=== PATIENT | male | born 1955 | race African-American/Black ===

== ENCOUNTER 2017-04-14 06:36 | Emergency (ER) | payer MEDICARE | END 2017-04-14 08:47 | disposition home or self-care (01) | LOC: ERS 06:36 | DX: J11.1 Influenza due to unidentified influenza virus with other respiratory manifestations (principal); K21.9 Gastro-esophageal reflux disease without esophagitis; E78.5 Hyperlipidemia, unspecified; M10.9 Gout, unspecified; M19.90 Unspecified osteoarthritis, unspecified site; J44.9 Chronic obstructive pulmonary disease, unspecified; F17.210 Nicotine dependence, cigarettes, uncomplicated; Z86.73 Personal history of transient ischemic attack (TIA), and cerebral infarction without residual deficits; Z79.899 Other long term (current) drug therapy | CPT/HCPCS: 94640; 99406 ==

== ENCOUNTER 2019-12-31 11:15 | Inpatient (IN) | payer OTHER ==
[2019-12-31] MEDS ORDERED: cefTRIAXone\\ROCEPHIN 1 GM VIAL ONE (12:14)
[2019-12-31] MEDS ORDERED: Pantoprazole 40 MG VIAL ONE (12:14)
[2019-12-31 12:41] LABS: #Basophils 0.1 thou/uL (0.0-0.2); #Eosinphils 0.1 thou/uL (0.0-0.7); #Neutrophils 8.5 thou/uL (1.40-6.50); %Basophils 1.2 % (0.0-1.0); %Eosinophils 0.6 % (0.0-10.0); %Lymphocytes 16.9 % (21.0-51.0); %Monocytes 8.6 % (0.0-10.0); %Neutrophils 72.7 % (42.0-75.0); Hemoglobin 10.2 g/dL (14.0-18.0); Mean Corpuscular Hemoglobin 30.6 pg (27.0-31.0); Mean Corpuscular Volume 92.5 fL (78.0-98.0); Mean Platelet Volume 10.6 fL (7.4-10.4); Platelet Count 166 thou/uL (130-400); RBC Distribution Width 11.5 % (11.5-14.5); Red Blood Cell (RBC) Count 3.33 mill/uL (4.70-6.10); White Blood Cell (WBC) Count 11.7 thou/uL (4.8-10.8)
[2019-12-31 12:49] LABS: PTT 24.9 sec (22.9-36.1); Prothrombin Time 12.7 sec (12.0-14.7)
[2019-12-31 13:03] LABS: ALT (SGPT) 16 U/L (8-55); AST (SGOT) 16 U/L (5-34); Alkaline Phosphatase 62 U/L (40-110); Anion Gap 15 mmol/L (10-20); BUN (Urea Nitrogen) 42 mg/dL (8.4-25.7); Bilirubin, Total 0.3 mg/dL (0.2-1.2); Calc. Creatinine Clearance 0 mL/min (70-130); Calcium 8.7 mg/dL (7.8-10.44); Carbon Dioxide 22 mmol/L (23-31); Chloride 104 mmol/L (98-107); Estimated GFR-MDRD Greater than 90; Globulin 2.8 g/dL (2.4-3.5); Glucose 186 mg/dL (80-115); Iron 325 ug/dL (65-175); Iron Binding Capacity, Total 328 mcg/dL (261-462); Potassium 4.5 mmol/L (3.5-5.1); Protein, Total 6.8 g/dL (5.8-8.1); Sodium 136 mmol/L (136-145)
[2019-12-31] MEDS ORDERED: Acetaminophen 325 MG TAB PO PRN (14:15)
[2019-12-31] MEDS ORDERED: Zolpidem Tartrate 5 MG TAB PO PRN (14:15)
[2019-12-31] MEDS ORDERED: Ondansetron ODT 4 MG TAB PO PRN (14:15)
[2019-12-31 14:46] LABS: Prothrombin Time 12.9 sec (12.0-14.7)
--- NOTE | 2019-12-31 14:47 | HP ---
PRIMARY CARE PROVIDER: [place]. CHIEF COMPLAINT: Black stools. PRESENT ILLNESS: The patient noticed a dark stool yesterday. He did think that the odor was strong, but noted no redness and he had another black BM x2 today, then he had an episode of vomiting today of dark coffee-ground looking material. He does admit to some bloating. He said he has had some mild occasional abdominal pain, generalized, not burning. Today, he felt weak and dizzy when he stood up. He states he has been told he has a heart murmur, elevated cholesterol, hypothyroidism, gastroesophageal reflux disease. He takes an aspirin 325 daily. He takes Zocor 20 mg a day, levothyroxine 25 mcg a day, and he has been taking Zantac, he is not sure of the dose. He states he also takes the drug from the [place] that starts with an R for pain that does not have any drugs in it. ALLERGIES: NO MEDICAL ALLERGIES. SURGERIES: He has had an L-spine surgery. He has had a mid abdominal hernia surgery with mesh below the umbilicus. FAMILY HISTORY: Mother had diabetes, high blood pressure and heart disease. He thinks she also had an ulcer as the only person with significant medical disease in her family history. He is . Full code. , next of kin for decision making. He smokes less than a half a pack a day. He has been known to drink 8 to 10 beers a day. Takes no illicit drugs. REVIEW OF SYSTEMS: CONSTITUTIONAL: He is dizzy on arising today. No fainting. No headache. EYES: No double vision, blurred vision, flashing lights. EAR, NOSE, AND THROAT: No ear pain or drainage. No nasal bleeding. No trouble swallowing. CARDIAC: No chest pain, orthopnea, or paroxysmal nocturnal dyspnea. RESPIRATION: No cough, wheezing or asthma, but he does state he is a little short of breath walking today. GASTROINTESTINAL: See Present Illness. No prior history of gastrointestinal bleeding, etc. GENITOURINARY: No hematuria, dysuria. MUSCULOSKELETAL: No pain or swelling in his legs. NEUROLOGICAL: No strokes, seizures, or focal weakness. PSYCHIATRIC: No anxiety or depression. SKIN: No bruising, bleeding or rash. HEME/LYMPH: No tender or swollen lymph nodes in axilla, inguinal, cervical area. PHYSICAL EXAMINATION: GENERAL: He is alert, pleasant, cooperative man. VITAL SIGNS: His initial blood pressure was 90/60 with a pulse of 105. He is currently 120/80 with pulse of 80, respirations 18. No pain. Temperature 98.5. HEAD, EYES, EARS, NOSE, AND THROAT: Revealed pupils are equal, round, and reactive to light with mild cataracts. Extraocular movements are intact. Sclerae are white. Tympanic membranes are clear. Nose is clear. Oral mucous membranes are wet. NECK: No jugular venous distention, adenopathy, thyromegaly or bruits. CHEST: Clear to auscultation and percussion. HEART: Regular rate and rhythm. First and second heart sounds. Soft 2/6 systolic murmur. ABDOMEN: Soft. Bowel sounds are normal. There is no hepatosplenomegaly. No mass. No rebound. EXTREMITIES: Reveal no cyanosis, clubbing, or edema. PULSES: Carotid, radial, femoral, and dorsalis pedis pulses intact. SKIN: Warm and dry without bruises or rash. HEME/LYMPH: Reveal no tender or swollen lymph nodes in axilla, inguinal, cervical area. LABORATORY: CBC; white count 11.7, hemoglobin 10.2, platelet count 166,000. INR 1.0. Chemistries show high iron at 325, a normal ferritin at 62. Liver function tests are normal. Electrolytes reveals sodium 135, potassium 4.5, chloride 104 , CO2 22, BUN 42, creatinine 0.87. I see no evidence of a chest x-ray or EKG done here. We will order same and review. ADMITTING DIAGNOSES: 1. History consistent with upper gastrointestinal bleeding with hematochezia and melena. 2. Anemia, acute blood loss. 3. Gastroesophageal reflux disease by history. 4. Dyslipidemia. 5. Hypothyroidism. 6. Alcohol abuse. 7. Tobacco abuse. PLAN: 1. Admit to [facility]. 2. GI consult for probable upper endoscopy. 3. Protonix IV q.12 hours. 4. IV fluids., transfuse for Hg < 7. 5. Clear liquids. 6. Banana bag daily. 7. Compression devices to prevent deep vein thrombosis. Job ID: [id number] MTDD
[2019-12-31 17:33] LABS: #Basophils 0.1 thou/uL (0.0-0.2); #Lymphocytes 2.8 thou/uL (1.20-3.40); #Monocytes 1.2 thou/uL (0.11-0.59); #Neutrophils 7.8 thou/uL (1.40-6.50); %Basophils 1.2 % (0.0-1.0); %Eosinophils 0.4 % (0.0-10.0); %Lymphocytes 23.4 % (21.0-51.0); %Monocytes 10.2 % (0.0-10.0); %Neutrophils 64.8 % (42.0-75.0); Hemoglobin 9.6 g/dL (14.0-18.0); Mean Corpuscular HGB CONC 32.8 g/dL (32.0-36.0); Mean Corpuscular Volume 91.4 fL (78.0-98.0); Mean Platelet Volume 10.2 fL (7.4-10.4); Platelet Count 156 thou/uL (130-400); RBC Distribution Width 11.6 % (11.5-14.5); White Blood Cell (WBC) Count 12.1 thou/uL (4.8-10.8)
[2019-12-31] MEDS: Sodium Chloride 0.9% 1,000 ML IV SCH ×2 (17:58→20:12)
[2019-12-31] MEDS: Pantoprazole 40 MG VIAL IVP SCH (20:11)
[2019-12-31 23:06] LABS: #Basophils 0.1 thou/uL (0.0-0.2); #Eosinphils 0.1 thou/uL (0.0-0.7); #Lymphocytes 3.4 thou/uL (1.20-3.40); #Monocytes 1.2 thou/uL (0.11-0.59); #Neutrophils 6.3 thou/uL (1.40-6.50); %Basophils 1.2 % (0.0-1.0); %Eosinophils 1.3 % (0.0-10.0); %Lymphocytes 30.3 % (21.0-51.0); %Monocytes 10.5 % (0.0-10.0); %Neutrophils 56.7 % (42.0-75.0); Hemoglobin 8.7 g/dL (14.0-18.0); Mean Corpuscular HGB CONC 33.9 g/dL (32.0-36.0); Mean Corpuscular Hemoglobin 31.5 pg (27.0-31.0); Mean Corpuscular Volume 92.8 fL (78.0-98.0); Mean Platelet Volume 10.1 fL (7.4-10.4); Platelet Count 138 thou/uL (130-400); RBC Distribution Width 11.6 % (11.5-14.5); Red Blood Cell (RBC) Count 2.77 mill/uL (4.70-6.10); White Blood Cell (WBC) Count 11.1 thou/uL (4.8-10.8)
--- NOTE | 2020-01-01 02:25 | CON ---
DATE OF CONSULTATION: 12/31/2019 REASON FOR CONSULTATION: History of black tarry stool and anemia. HISTORY OF PRESENT ILLNESS: Mr. Valente Qiu is a 64-year-old male seen in the ER this morning with a history of black tarry stools for the last 2 days. He woke up this morning and felt nauseous and he had sudden nausea and vomiting and he vomited some coffee-ground material. The patient had vomited only one time. He felt dizzy subsequently afterwards and felt like passing out. He felt weak overall. He came to the ER and was found to have anemia and tarry stool on rectal exam. Initially, he was transiently hypotensive, with the fluid bolus his blood pressure went back to normal. When I saw him in the IMCU, he is actually awake, alert, and communicative. His pulse rate is 96 and blood pressure 110/ 70. The patient denies abdominal pain or any more nausea at the present time. He has had no more stool. The patient does see Dr. Maynor Carmona at the [facility]. The patient has had previous EGD and colonoscopy. He told it was done somewhere in [place] and then, he told me somewhere done in [place]. Finally, he tells me he had a colonoscopy with [facility] three years ago and he has EGD at the same time. The patient does take aspirin on a regular basis. He also takes naproxen at least once a day for some headache and for some back pain. The patient had no previous episodes of hematochezia, black tarry stool, nausea, or vomiting. He does not know what was found on the last examination in 2016. He had no history of esophageal varices. He has no history of liver cirrhosis. Apparently, his GI doctor told him that he is drinking heavily, he might also have liver cirrhosis in the future. He does drink at least 8 to 10 cans of beer every day. The patient denies any dyspepsia. No history of dysphagia or odynophagia. The patient was taking Zantac before, but he is taking generic Zantac at the present time. He takes ranitidine. He has no relevant symptoms. ALLERGIES: NONE. SOCIAL HISTORY: The patient smokes one half pack of cigarettes per day. Alcohol 8 to 10 cans of beer every day. No drug use. MEDICAL ILLNESSES: 1. Chronic low back pain, status post surgery many years ago. 2. Hypothyroidism. 3. Hyperlipidemia. 4. Heart murmur. 5. Chronic acid reflux. MEDICATIONS: Includes; 1. Aspirin once a day. 2. Naproxen. 3. Zocor for hyperlipidemia. 4. Also takes thyroid replacement. SURGERIES: 1. Umbilical hernia repair. 2. Back surgery. 3. EGD and colonoscopy. FAMILY HISTORY: Mother; diabetes mellitus, hypertension, and heart disease. There is no family history of any visual malignancy. REVIEW OF SYSTEMS: Reviewed; [employer]: No history of any seizure disorder. No history of chronic headache. No syncope. RESPIRATORY SYSTEM: No chronic coughing. No hemoptysis. No dyspnea. CARDIOVASCULAR SYSTEM: History of heart murmur. No chest pain. No palpitation. No dyspnea, orthopnea, or PND. GI: History of tarry stool, nausea, vomiting, and vomiting coffee-ground material. : No dysuria or hematuria. MUSCULOSKELETAL: History of chronic back pain. Takes naproxen. NEUROPSYCHIATRY: No history of depression or anxiety. HEMATOLOGIC: Not relevant. HEENT: No diplopia. No impaired vision. No hearing loss. No nose bleeding. No sore throat or dysphagia. PHYSICAL EXAMINATION: GENERAL: He is a very pleasant male, appears very comfortable. He is awake, alert, and communicative. VITAL SIGNS: Pulse is 96 and blood pressure 110/70. HEENT: Conjunctivae are clear. NECK: Supple. No adenitis or thyromegaly noted. CARDIOVASCULAR SYSTEM: Normal heart sounds. He has a faint systolic murmur. LUNGS: Clear to auscultation. ABDOMEN: Soft to palpate. Abdomen is nondistended. Abdomen is nontender. No organomegaly. No masses. GENITOURINARY: No hernia noted. EXTREMITIES: No pain or any deformities or impaired walking. Reveal no edema. LABORATORY DATA: WBC 11,700, hemoglobin 10.2, hematocrit 33, and platelet count 166,000. INR is 1. Chemistry panel shows iron 325 and ferritin 52. LFTs are normal. Electrolytes are normal. BUN is 42, mostly from GI bleeding. Creatinine 0.67. Liver function tests normal. CLINICAL IMPRESSION: 1. A 64-year-old male with history of black tarry stool and vomiting coffee-ground material. No abdominal pain. The patient's blood pressures potentially low in the ER but now back to normal. Blood count is slightly low. Based on the history of taking aspirin and also naproxen, he most likely has ulcer disease. 2. Anemia due to blood loss. 3. Hypothyroidism. 4. Hyperlipidemia. 5. Chronic acid reflux. 6. Umbilical hernia repair. 7. History of back surgery and he still has some pain off and on. RECOMMENDATION: 1. PPI. 2. Clear liquid diet. 3. Serial H and H. 4. EGD tomorrow after his COVID-19 test comes back. I tried to have the rapid COVID testing done, but the ER told me there were very limited tests available. 5. We will recommend transfuse if blood count drops below 7 g. Job ID: [id number] [facility]
[2020-01-01] MEDS: Sodium Chloride 0.9% 1,000 ML IV SCH ×2 (04:54→10:43)
[2020-01-01 05:40] LABS: #Basophils 0.1 thou/uL (0.0-0.2); #Eosinphils 0.2 thou/uL (0.0-0.7); #Lymphocytes 2.8 thou/uL (1.20-3.40); #Neutrophils 5.7 thou/uL (1.40-6.50); %Basophils 1.4 % (0.0-1.0); %Eosinophils 1.9 % (0.0-10.0); %Lymphocytes 28.4 % (21.0-51.0); %Monocytes 10.5 % (0.0-10.0); %Neutrophils 57.9 % (42.0-75.0); Hemoglobin 8.1 g/dL (14.0-18.0); Mean Corpuscular HGB CONC 32.6 g/dL (32.0-36.0); Mean Corpuscular Hemoglobin 30.2 pg (27.0-31.0); Mean Corpuscular Volume 92.8 fL (78.0-98.0); Mean Platelet Volume 10.4 fL (7.4-10.4); Platelet Count 131 thou/uL (130-400); RBC Distribution Width 11.6 % (11.5-14.5); Red Blood Cell (RBC) Count 2.69 mill/uL (4.70-6.10); White Blood Cell (WBC) Count 9.9 thou/uL (4.8-10.8)
[2020-01-01 05:56] LABS: Anion Gap 11 mmol/L (10-20); BUN (Urea Nitrogen) 18 mg/dL (8.4-25.7); Calc. Creatinine Clearance 112 mL/min (70-130); Calcium 7.9 mg/dL (7.8-10.44); Carbon Dioxide 23 mmol/L (23-31); Chloride 108 mmol/L (98-107); Estimated GFR-MDRD Greater than 90; Glucose 107 mg/dL (80-115); Potassium 3.9 mmol/L (3.5-5.1); Sodium 138 mmol/L (136-145)
[2020-01-01] MEDS ORDERED: Fentanyl 100 MCG/2 ML VIAL ONE (06:50)
[2020-01-01] MEDS: Pantoprazole 40 MG VIAL IVP SCH ×2 (07:32→21:07)
[2020-01-01 08:26] LABS: SARS-CoV-2 NAA Rapid Test Not Detected (NotDetected)
[2020-01-01] MEDS ORDERED: PROPOFOL 200 MG/20 ML VIAL ONE (11:28)
[2020-01-01 11:34] LABS: #Basophils 0.1 thou/uL (0.0-0.2); #Eosinphils 0.1 thou/uL (0.0-0.7); #Monocytes 0.7 thou/uL (0.11-0.59); #Neutrophils 6.2 thou/uL (1.40-6.50); %Lymphocytes 22.1 % (21.0-51.0); %Monocytes 7.7 % (0.0-10.0); %Neutrophils 68.1 % (42.0-75.0); Hemoglobin 7.8 g/dL (14.0-18.0); MDiff Complete? YES; Mean Corpuscular HGB CONC 32.6 g/dL (32.0-36.0); Mean Corpuscular Hemoglobin 30.5 pg (27.0-31.0); Mean Corpuscular Volume 93.7 fL (78.0-98.0); Mean Platelet Volume 9.6 fL (7.4-10.4); Platelet Count 119 thou/uL (130-400); Platelet Morphology Comment Appears Decreased; Polychromasia SLIGHT = 2-3 cells (100X) (0-2/hpf); RBC Distribution Width 11.4 % (11.5-14.5); Red Blood Cell (RBC) Count 2.54 mill/uL (4.70-6.10); White Blood Cell (WBC) Count 9.1 thou/uL (4.8-10.8)
--- NOTE | 2020-01-01 12:56 | PDOC.HOSPP ---
- Subjective Encounter Date: 01/01/20 Encounter Time: 12:53 Subjective: post EGD , feels much better - Objective Vital Signs & Weight: Vital Signs (12 hours) Temp Pulse Ox 01/01/20 11:40 97.4 F L 01/01/20 08:00 98 01/01/20 07:48 98.5 F 01/01/20 03:58 97.2 F L Weight Weight 172 lb 11.2 oz Most Recent Monitor Data Heart Rate from ECG 81 NIBP 104/56 NIBP BP-Mean 72 Respiration from ECG 21 SpO2 100 I&O: 12/31/19 01/01/20 01/02/20 06:59 06:59 06:59 Intake Total 2404 Output Total 1020 Balance 1384 Result Diagrams: 01/01/20 10:52 01/01/20 04:52 Hospitalist ROS - Medication Medications: Active Medications Generic Name Dose Route Start Last Admin Trade Name Freq PRN Reason Stop Dose Admin Sodium Chloride 1,000 mls @ 150 mls/hr 12/31/19 14:15 01/01/20 10:43 Normal Saline 0.9% IV 1,000 mls .[id number] LARRY Administration Ondansetron HCl 4 mg 12/31/19 14:15 12/31/19 20:17 Zofran Odt PO 4 mg Q6H PRN Administration Nausea/Vomiting Pantoprazole Sodium 40 mg 12/31/19 21:00 01/01/20 07:32 Protonix IVP 40 mg Q12HR LARRY Administration - Exam General Appearance: awake alert Neck: no JVD Heart: RRR, II/IV Respiratory: CTAB Gastrointestinal: soft, no palpable masses Extremities: no edema Hosp A/P (1) Upper GI bleed Code(s): K92.2 - GASTROINTESTINAL HEMORRHAGE, UNSPECIFIED Status: Acute (2) Anemia due to blood loss, acute Code(s): D62 - ACUTE POSTHEMORRHAGIC ANEMIA Status: Acute (3) Dyslipidemia Code(s): E78.5 - HYPERLIPIDEMIA, UNSPECIFIED Status: Chronic (4) Hypothyroid Code(s): E03.9 - HYPOTHYROIDISM, UNSPECIFIED Status: Chronic Qualifiers: Hypothyroidism type: unspecified Qualified Code(s): E03.9 - Hypothyroidism , unspecified - Plan post-EGD cont PPI serial H&H clear liquids transfuse for Hg <7.
--- NOTE | 2020-01-01 13:17 | OP ---
DATE OF PROCEDURE: 01/01/2020 PROCEDURE PERFORMED: Esophagogastroduodenoscopy with biopsy. INDICATIONS FOR PROCEDURE: Hematemesis, melena. DESCRIPTION OF PROCEDURE: After the risks and benefits of the procedure were explained to the patient including risks of bleeding, infection, perforation, reactions to anesthesia, aspiration, and/or pain, informed consent was obtained. The patient was then taken to the endoscopy suite where he was maneuvered into the left lateral decubitus position followed by introduction of deep sedation via propofol and anesthesia support. Once adequate sedation was achieved, the standard gastroscope was introduced into the mouth with intubation of the esophagus, stomach, and the proximal small intestines with the findings listed below. The patient tolerated the procedure well with no immediate perioperative complications. Upon conclusion of the procedure, all equipment was removed from the patient and he was transferred to PACU in satisfactory condition. FINDINGS: Esophagus: Normal-appearing mucosa was seen in the proximal, mid, and distal esophagus. There was no evidence of erosions, ulcerations, mass lesions, or active/recent bleeding. Stomach: Normal-appearing mucosa was seen in the gastric cardia, fundus, body, greater curvature, and incisura; however a 7- to 8-mm linear ulceration that was clean based was seen in the gastric antrum/prepyloric region. There was no high-risk stigmata associated with this ulceration. Multiple biopsies were then taken from the ulceration and around the ulceration for further evaluation. There was no evidence of active or recent bleeding seen in this portion of the examination. Duodenum: A [id number] amount of mucosal erythema was seen in the duodenal bulb and extending into the duodenal sweep. However, there were no other associated abnormalities with this with lack of evidence for erosions or ulcerations. Normal-appearing mucosa was then seen in the second portion of the duodenum. There was no evidence of erosions, ulcerations, mass lesions, or active/recent bleeding during this portion of the examination. IMPRESSION: 1. A 7- to 8-mm linear clean based ulceration without high-risk stigmata of active/recent bleeding seen in the gastric antrum/prepyloric region status post biopsies. 2. Hrup-sm-wnepyqod duodenitis, likely secondary to the causative mechanism behind one. RECOMMENDATIONS: 1. Would continue to trend his hemoglobin and hematocrit and transfuse as necessary to maintain the hemoglobin and hematocrit of 7/21. 2. Continue to monitor clinically for signs of active GI bleeding. 3. Would continue the patient on PPI 40 mg b.i.d., but can transfer to an oral formulation. I would recommend discharging the patient on this dosing schedule until seen in the GI clinic. 4. Would avoid any NSAIDs during this hospitalization as a possible causative mechanism behind the ulcer formation. 5. Advance diet as tolerated. Given the ulcer characteristics seen on upper endoscopy today, there is a less than 5% chance of rebleeding from this lesion. As such, I would recommend rechecking his hemoglobin and hematocrit in the morning, and if stable, discharge at that time. We will sign off. Please call with any additional questions. Job ID: [id number]
[2020-01-01 14:28] LABS: #Basophils 0.1 thou/uL (0.0-0.2); #Eosinphils 0.1 thou/uL (0.0-0.7); #Lymphocytes 2.1 thou/uL (1.20-3.40); #Monocytes 0.7 thou/uL (0.11-0.59); #Neutrophils 4.7 thou/uL (1.40-6.50); %Basophils 0.9 % (0.0-1.0); %Eosinophils 1.8 % (0.0-10.0); %Lymphocytes 26.9 % (21.0-51.0); %Monocytes 9.3 % (0.0-10.0); %Neutrophils 61.1 % (42.0-75.0); Hemoglobin 7.6 g/dL (14.0-18.0); Mean Corpuscular HGB CONC 32.9 g/dL (32.0-36.0); Mean Corpuscular Hemoglobin 30.7 pg (27.0-31.0); Mean Corpuscular Volume 93.4 fL (78.0-98.0); Mean Platelet Volume 9.5 fL (7.4-10.4); Platelet Count 111 thou/uL (130-400); RBC Distribution Width 11.6 % (11.5-14.5); Red Blood Cell (RBC) Count 2.48 mill/uL (4.70-6.10); White Blood Cell (WBC) Count 7.7 thou/uL (4.8-10.8)
[2020-01-01] MEDS ORDERED: Atorvastatin Calcium 10 MG TAB PO SCH (21:00)
[2020-01-01 22:21] LABS: #Basophils 0.1 thou/uL (0.0-0.2); #Eosinphils 0.2 thou/uL (0.0-0.7); #Lymphocytes 2.7 thou/uL (1.20-3.40); #Monocytes 0.7 thou/uL (0.11-0.59); #Neutrophils 3.8 thou/uL (1.40-6.50); %Basophils 1.6 % (0.0-1.0); %Eosinophils 2.7 % (0.0-10.0); %Lymphocytes 36.4 % (21.0-51.0); %Monocytes 8.9 % (0.0-10.0); %Neutrophils 50.4 % (42.0-75.0); Hemoglobin 7.9 g/dL (14.0-18.0); Mean Corpuscular HGB CONC 32.7 g/dL (32.0-36.0); Mean Corpuscular Hemoglobin 30.5 pg (27.0-31.0); Mean Corpuscular Volume 93.4 fL (78.0-98.0); Mean Platelet Volume 9.8 fL (7.4-10.4); Platelet Count 117 thou/uL (130-400); RBC Distribution Width 11.6 % (11.5-14.5); White Blood Cell (WBC) Count 7.5 thou/uL (4.8-10.8)
[2020-01-02 04:12] LABS: Anion Gap 10 mmol/L (10-20); BUN (Urea Nitrogen) 7 mg/dL (8.4-25.7); Calc. Creatinine Clearance 116 mL/min (70-130); Calcium 8.3 mg/dL (7.8-10.44); Carbon Dioxide 26 mmol/L (23-31); Chloride 106 mmol/L (98-107); Estimated GFR-MDRD Greater than 90; Glucose 102 mg/dL (80-115); Potassium 3.9 mmol/L (3.5-5.1); Sodium 138 mmol/L (136-145)
[2020-01-02] MEDS ORDERED: Levothyroxine Sodium 25 MCG TAB PO SCH (06:00)
[2020-01-02 07:27] VITALS: TEMP 97.6
[2020-01-02 08:55] LABS: Hemoglobin 8.5 g/dL (14.0-18.0); Platelet Count 141 thou/uL (130-400)
[2020-01-02 09:16] VITALS: BP 109/59
--- NOTE | 2020-01-02 09:17 | PDOC.FMACP ---
Advance Care Planning - Problem (1) Palliative care encounter Status: Acute Code(s): Z51.5 - ENCOUNTER FOR PALLIATIVE CARE (2) Anemia due to blood loss, acute Status: Acute Code(s): D62 - ACUTE POSTHEMORRHAGIC ANEMIA (3) Upper GI bleed Status: Acute Code(s): K92.2 - GASTROINTESTINAL HEMORRHAGE, UNSPECIFIED - Note Participants: patient, palliative care Summary: Palliative care addressed Advanced Care Planning, opportunity to decline. The diagnosis, prognosis and goals of care were discussed. Appropriate forms and documentation to accomplish the goals of care were discussed. All questions were answered. Mr Qiu elected to complete the MPOA, original and a copy provided to patient, copy placed on the chart for medical records. He confirms he has Directive to physician at the [facility], requested copy be provided to the hospital for his medical records in the event it is needed in the future. Please also refer to Palliative Care notes in note section. Time Spent (mins): 20
--- NOTE | 2020-01-02 14:34 | DIS ---
DATE OF ADMISSION: 12/31/2019 DATE OF DISCHARGE: 01/02/2020 PRIMARY CARE PROVIDER: [facility]. DIAGNOSES: 1. Upper gastrointestinal hemorrhage. 2. Peptic ulcer. 3. Acute post hemorrhagic anemia. 4. Gastroesophageal reflux disease. 5. Dyslipidemia. DISCHARGE MEDICATIONS: 1. Zocor 20 mg daily. 2. Levothyroxine 25 mcg a day. 3. Protonix 40 mg p.o. b.i.d. ALLERGIES: NONE. PENDING AT TIME OF DISCHARGE: Biopsies of gastric mucosa. DIET: Heart healthy. CODE STATUS: Full. HOSPITAL COURSE: The patient admitted to the hospital through [facility] to the Hospitalist Service. The patient was noted to have multiple black stools, felt weak, came to the hospital. His hemoglobin was 8.5, platelet count of 166,000. He had an iron of 325, ferritin of 62. He was placed on the hospital on IV fluids. PPI ordered IV twice a day. Dr. Conchita Soares saw him in consultation. On 01/01/2020, Rachid Lilly, Gastroenterology, did an EGD with biopsies. He had a 7-to 8-mm linear clean-based ulceration without high risk of stigmata or rebleeding. Today, his hemoglobin had come up from 7.9 the day before to 8.5. His COVID test on admission was negative. His chemistries were balanced. Dr. Lilly was comfortable with him being discharged on p.o. Protonix twice a day. In addition, he wanted him to stay on it twice a day until seen in followup by Gastroenterology. His aspirin was stopped. He was told to stop any potential NSAIDs. He was on a pain medicine from the [facility]. He could not remember what the name was. I told him not to take it until it was confirmed, it was not on nonsteroidal antiinflammatory drug. He was comfortable with that. He was requested to see. Follow up with Dr. Lilly's office, to follow up with the PCP at the [facility] in 3 to 7 days. CONSULTANTS: Gastroenterology, Dr. Conchita Soares. PROCEDURES: Esophagogastroduodenoscopy with biopsies, pending biopsies of stomach. Job ID: [id number] [facility]
== END 2020-01-02 09:15 | disposition home or self-care (01) | DRG 378 ==
LOC: ERS 11:15 → IMCU/EMU 16:42
PROVIDERS: ADMIT Internal Medicine; ATTEND Internal Medicine
PROC: 0DB68ZX Excision of Stomach, Via Natural or Artificial Opening Endoscopic, Diagnostic (ICD-10-PCS; principal; 2020-01-01)
DX: K25.4 Chronic or unspecified gastric ulcer with hemorrhage (principal); D62 Acute posthemorrhagic anemia; K21.9 Gastro-esophageal reflux disease without esophagitis; E78.5 Hyperlipidemia, unspecified; Z20.828 Contact with and (suspected) exposure to other viral communicable diseases; K29.81 Duodenitis with bleeding; G89.29 Other chronic pain; M19.90 Unspecified osteoarthritis, unspecified site; F10.10 Alcohol abuse, uncomplicated; M10.9 Gout, unspecified; J44.9 Chronic obstructive pulmonary disease, unspecified; F17.210 Nicotine dependence, cigarettes, uncomplicated; F14.11 Cocaine abuse, in remission; E03.9 Hypothyroidism, unspecified; Z79.82 Long term (current) use of aspirin; Z86.73 Personal history of transient ischemic attack (TIA), and cerebral infarction without residual deficits
CPT/HCPCS: 36415; 80048; 80053; 82728; 83540; 83550; 83605; 84484; 85014; 85018; 85025; 85049; 85610; 85730; 86850; 86900; 86901; 87635; 88305; 88312; 88341; 88342; 93005; 96365; 96375; C9113; J0696; J2704; J3010; Q0162; U0002; U0003

== ENCOUNTER 2020-11-02 07:42 | Emergency (ER) | payer OTHER | END 2020-11-02 08:14 | disposition home or self-care (01) | LOC: ERS 07:42 | DX: S61.012A Laceration without foreign body of left thumb without damage to nail, initial encounter (principal); K21.9 Gastro-esophageal reflux disease without esophagitis; M10.9 Gout, unspecified; E78.00 Pure hypercholesterolemia, unspecified; E03.9 Hypothyroidism, unspecified; J44.9 Chronic obstructive pulmonary disease, unspecified; Z86.73 Personal history of transient ischemic attack (TIA), and cerebral infarction without residual deficits; F17.210 Nicotine dependence, cigarettes, uncomplicated; Z79.899 Other long term (current) drug therapy; W45.8XXA Other foreign body or object entering through skin, initial encounter | CPT/HCPCS: 99281 ==

== ENCOUNTER 2021-12-28 08:00 | Outpatient (CLI) | payer OTHER | END 2021-12-28 08:01 | disposition home or self-care (01) | LOC: BICMRI 08:00 | PROVIDERS: ATTEND Internal Medicine | DX: M54.59 Other low back pain (principal); M48.061 Spinal stenosis, lumbar region without neurogenic claudication; M48.07 Spinal stenosis, lumbosacral region | CPT/HCPCS: 72148 ==